=== PATIENT | male | born 1985 | race Caucasian/White ===

== ENCOUNTER 2017-03-03 01:00 | Emergency (ER) | payer OTHER ==
[~2017-03-03] VITALS: Ht 174 cm; Wt 89.0 kg
[~2017-03-03 01:00] MED LIST: METH10TA2 PO; VITACAP26 PO
[2017-03-03 01:08] VITALS: TEMP 36.7; Ht 174 cm; Wt 89.0 kg
[2017-03-03] MEDS ORDERED: SODIUM CHLORIDE 0.9% 1000ML 1,000 ML IV STA (01:30)
[2017-03-03] MEDS ORDERED: ONDA4TAB46 PO (01:36)
[2017-03-03] MEDS ORDERED: PRLSR20 PO (01:36)
[2017-03-03] MEDS ORDERED: METH5SOL PO (01:38)
[2017-03-03] MEDS ORDERED: OPTIRAY 320 IV PRN (01:45)
[2017-03-03 01:56] LABS: ISTAT CREATININE 0.8 mg/dl (0.6-1.3); ISTAT IONIZED CALCIUM 1.15 mmol/l (1.12-1.32)
[2017-03-03 02:00] LABS: BASO % 0.2 %; BASO ABS # 0.02 K/uL (0-0.2); COMPLETE YES; EOS % 5.1 %; IG% 0.3 %; LYMPH ABS # 3.55 K/uL (1.2-3.4); MEAN CELL VOLUME 93.3 fL (80-100); MEAN CORPUSCULAR HEMOGLOBIN 32.2 pg (25-34); MEAN CORPUSCULAR HGB CONC 34.5 g/dl (32-36); MEAN PLATELET VOLUME 10.2 fL (7.4-10.4); MONO % 8.1 %; NEUT % 53.3 %; PLATELET COUNT 145 K/uL (130-400); WHITE BLOOD COUNT 10.76 K/uL (4.8-10.8)
[2017-03-03 02:16] LABS: PARTIAL THROMBOPLASTIN RATIO 1.1; PROTHROMBIN TIME (PATIENT) 10.3 SECONDS (9.0-12.0)
[2017-03-03 02:21] LABS: BUN/CREATININE RATIO 11.5 (10-20); CALCIUM 8.5 mg/dl (8.5-10.1); CREATININE 0.87 mg/dl (0.60-1.40); POTASSIUM 3.9 mmol/L (3.5-5.1)
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
[2017-03-03] MEDS ORDERED: IBUP-1450 PO (02:46)
[2017-03-03] MEDS ORDERED: KETOROLAC TROMETHAMINE 30 MG/ML VIAL ONE (03:03)
[2017-03-03] MEDS ORDERED: KETOROLAC TROMETHAMINE 30 MG/ML VIAL IV STA (03:05)
--- NOTE | 2017-03-03 03:11 | EMERGENCY ROOM VISIT NOTE ---
ED Visit Note First contact with patient: 01:05 I was asked to see this patient because he was unhappy that he did not receive any pain medication while here in the emergency department. The patient is a recovering drug addict with hepatitis C. He is currently on methadone. He requested that I prescribe him a nonnarcotic pain medication. I explained to him that he was prescribed Motrin to use for his pain. He explained that Motrin and Tylenol do not work for him. He then proceeded to search nonnarcotic pain medications on his phone. He recommended gabapentin or Neurontin for his pain. I explained that these medications are not typically effective for acute traumatic pain but for more long-term chronic pain. The patient was given 30 mg of IV Toradol for his acute pain. We talked about his alcohol use yesterday and his history of hepatitis C. I suggested that the patient take Motrin every 6 hours of stomach. He can follow-up with his PCP if the rib fracture pain persists.
[2017-03-03 03:15] VITALS: BP 124/80; PULSE 90; O2SAT 98
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
== END 2017-03-03 03:20 | disposition home or self-care (01) ==
LOC: C.EDB 01:02 → C.EDA 03:20
DX: S22.41XA Multiple fractures of ribs, right side, initial encounter for closed fracture (principal); W51.XXXA Accidental striking against or bumped into by another person, initial encounter; Y93.83 Activity, rough housing and horseplay; Y99.8 Other external cause status; B19.20 Unspecified viral hepatitis C without hepatic coma; F17.200 Nicotine dependence, unspecified, uncomplicated; Z82.49 Family history of ischemic heart disease and other diseases of the circulatory system

== ENCOUNTER 2022-03-13 00:20 | Inpatient (IN) ==
[2022-03-13] MEDS ORDERED: SODIUM CHLORIDE 0.9% 1000ML 1,000 ML IV STA (00:28)
[2022-03-13] MEDS ORDERED: ONDANSETRON INJ 2 MG/ML 2 ML VIAL IV STA (00:28)
[2022-03-13] MEDS ORDERED: MoRPHine SULFATE 4 MG/ML 1 ML CARP\\VIAL IV STA (00:28)
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
[2022-03-13 01:02] LABS: Hematocrit (blood only) 42.1 % (42-52); Hemoglobin 14.1 g/dL (14.0-18.0); Mean Corpuscular Hemoglobin 31.1 pg (25-34); Mean Corpuscular Hgb Conc 33.5 g/dL (32-36); Mean Corpuscular Volume 92.9 fL (80-100); Mean Platelet Volume 9.9 fL (7.4-10.4); Platelet Count 218 K/uL (130-400); RDW Coefficient of Variation 12.8 % (11.5-14.5); RDW Standard Deviation 43.8 fL (36.4-46.3); Red Blood Count 4.53 M/uL (4.7-6.1); White Blood Count 9.88 K/uL (4.8-10.8)
[2022-03-13 01:10] LABS: Appearance Urine Clear (Clear); Bilirubin Urine Negative (Negative); Blood Urine Negative (Negative); Color Urine Yellow; Glucose Urine UA Negative (Negative); Ketones Urine Negative (Negative); Leukocyte Esterase Urine Negative (Negative); Nitrite Urine Negative (Negative); Protein Urine Negative (Negative); Specific Gravity Urine 1.007 (1.000-1.030); Urobilinogen Urine Negative (Negative); pH Urine 5.5 (4.5-7.5)
[2022-03-13 01:18] LABS: Est GFR (African American) 133.7 ml/min
[2022-03-13 01:19] LABS: BUN Creatinine Ratio 20.7 (10-20); Calcium 9.3 mg/dl (8.5-10.1); Creatinine Clr Calc Pharmacy 122.8 ml/min; Est GFR (Non-African American) 115.4 ml/min
[2022-03-13 01:33] LABS: Albumin Globulin Ratio 1.6 (0.9-2); Albumin Level 4.6 gm/dl (3.4-5.0); Bilirubin,Total 0.8 mg/dl (0.2-1.0); Globulin 2.8 gm/dl (2.5-4.0); Total Protein 7.4 gm/dl (6.0-8.3)
[2022-03-13] MEDS ORDERED: OPTIRAY 320 100ml IV ONE (01:57)
[2022-03-13 02:03] LABS: Basophils # (auto) 0.01 K/uL (0-0.2); Basophils % (auto) 0.1 %; Eosinophils # (auto) 0.91 K/uL (0-0.5); Eosinophils % (auto) 9.2 %; Immature Granulocytes # (auto) 0.02 K/uL (0.00-0.02); Immature Granulocytes % (auto) 0.2 %; Lymphocytes % (auto) 29.4 %; Monocytes # (auto) 0.63 K/uL (0.11-0.59); Monocytes % (auto) 6.4 %; Neutrophils # (auto) 5.41 K/uL (1.4-6.5); Neutrophils % (auto) 54.7 %
[2022-03-13] MEDS ORDERED: SODIUM CHLORIDE 0.9% 1000ML 1,000 ML IV ONE (02:52)
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
[2022-03-13] MEDS ORDERED: KETOROLAC TROMETHAMINE 15 MG/ML VIAL IV ONE (04:06)
[2022-03-13] MEDS ORDERED: LORazepam 2 MG/1 ML VIAL IV PRN ×4 (04:08→05:13)
[2022-03-13] MEDS ORDERED: ATIVAN IV ALCOHOL WITHDRAWL IV PRN (04:08)
[2022-03-13] MEDS ORDERED: THIAMINE HCL 100 MG in SYRINGE 9 ML IV STA (04:19)
[2022-03-13] MEDS ORDERED: PROMETHAZINE HCL 12.5 MG in SODIUM CHLORIDE 0.9% 50 ML IV PRN (05:13)
[2022-03-13] MEDS ORDERED: CYCLOBENZAPRINE HCL 10 MG TAB PO PRN (05:13)
[2022-03-13] MEDS ORDERED: ACETAMINOPHEN 325 MG TAB PO PRN (05:13)
[2022-03-13] MEDS ORDERED: LACTATED RINGER'S 1,000 ML IV ONE (05:13)
[2022-03-13] MEDS ORDERED: KETOROLAC TROMETHAMINE 15 MG/ML VIAL IV PRN (05:13)
[2022-03-13] MEDS: NICOTINE 21 MG/24 HR TDSY TD SCH (05:33)
[2022-03-13] MEDS: PANTOprazole 40 MG TAB PO SCH (06:15)
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
[2022-03-13] MEDS: buPROPion XL 300 MG TABCR PO SCH (09:56)
[2022-03-13] MEDS: OXYBUTYNIN CHLORIDE 5 MG TAB PO SCH (09:56)
[2022-03-13] MEDS: ENOXAPARIN INJ 40 MG/0.4 ML SYR SQ SCH (09:56)
[2022-03-13] MEDS: MULTIVITAMIN TAB PO SCH (09:56)
[2022-03-13] MEDS: FOLIC ACID 1 MG TAB PO SCH (09:56)
[2022-03-13] MEDS: LACTATED RINGER'S 1,000 ML IV SCH ×3 (10:45→19:53)
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
[2022-03-13] MEDS ORDERED: METHADONE XX SCH (12:45)
[2022-03-13] MEDS: METHADONE ORAL SOLN 2 MG/ML PO SCH (14:07)
[2022-03-13 22:16] LABS: Amphetamines+Metham, Urine Neg (Neg); Barbiturates, Urine Neg (Neg); Benzodiazepine, Urine Neg (Neg); Cocaine, Urine Neg (Neg); MDMA (Ecstacy), Urine Pos (Neg); Methadone, Urine Pos (Neg); Opiate, Urine Neg (Neg); Phencyclidine, Urine Neg (Neg)
[2022-03-14] MEDS: LACTATED RINGER'S 1,000 ML IV SCH ×3 (00:19→08:24)
[2022-03-14] MEDS: PANTOprazole 40 MG TAB PO SCH (06:05)
[2022-03-14] MEDS: OXYBUTYNIN CHLORIDE 5 MG TAB PO SCH (08:24)
[2022-03-14] MEDS: NICOTINE 21 MG/24 HR TDSY TD SCH (08:24)
[2022-03-14] MEDS: MULTIVITAMIN TAB PO SCH (08:24)
[2022-03-14] MEDS: FOLIC ACID 1 MG TAB PO SCH (08:24)
[2022-03-14] MEDS: buPROPion XL 300 MG TABCR PO SCH (08:25)
[2022-03-14] MEDS: METHADONE ORAL SOLN 2 MG/ML PO SCH (08:35)
[2022-03-14] MEDS: ENOXAPARIN INJ 40 MG/0.4 ML SYR SQ SCH (08:46)
[2022-03-14] MEDS ORDERED: THIAMINE HCL 100 MG TAB PO SCH (09:00)
[2022-03-14 09:43] LABS: Basophils # (auto) 0.01 K/uL (0-0.2); Basophils % (auto) 0.1 %; Eosinophils # (auto) 0.37 K/uL (0-0.5); Eosinophils % (auto) 4.6 %; Hematocrit (blood only) 41.6 % (42-52); Hemoglobin 13.8 g/dL (14.0-18.0); Immature Granulocytes # (auto) 0.01 K/uL (0.00-0.02); Immature Granulocytes % (auto) 0.1 %; Lymphocytes # (auto) 1.47 K/uL (1.2-3.4); Lymphocytes % (auto) 18.3 %; Mean Corpuscular Hemoglobin 30.9 pg (25-34); Mean Corpuscular Hgb Conc 33.2 g/dL (32-36); Mean Corpuscular Volume 93.1 fL (80-100); Mean Platelet Volume 10.4 fL (7.4-10.4); Monocytes # (auto) 0.56 K/uL (0.11-0.59); Neutrophils % (auto) 69.9 %; Platelet Count 174 K/uL (130-400); RDW Coefficient of Variation 12.8 % (11.5-14.5); RDW Standard Deviation 43.7 fL (36.4-46.3); Red Blood Count 4.47 M/uL (4.7-6.1); White Blood Count 8.02 K/uL (4.8-10.8)
--- NOTE | 2022-03-14 09:55 | Gastroenterology Progress Note ---
Date of Service March 14, 2022 Assessment & Plan (1) Pancreatitis: (2) Upper abdominal pain: Plan: 36 old male with history of IV drug use, clean for 2 months, history of hep C which was treated several years ago, achieved SVR, recent hep C testing was negative as an outpatient, history of binge drinking, recently drink 3 days ago, developed nausea vomiting abdominal pain. Presented today, lipase of greater than 600, but otherwise labs unremarkable and CT suggested the pancreas appeared normal. No apparent biliary stones, no Vito Dil or elevated LFTs to suggest biliary obstruction. Likely seems to be c/w mild pancreatitis related to ETOH use by history, this already appears clinically improved as he is tolerating a clear liquid tray and asking for more food presently. Pain is largely controlled. - LR fluid hydration; aim for 2 pt drop in HGB - Antiemetics as needed Diet as tolerated; low fat Can encourage ambulation as tolerated - Would encourage strict EtOH avoidance moving forward Thank you for allowing us to participate in the care of this patient. Please call with any acute changes, questions or concerns. Please see addendum below with additional recommendation from my supervising physician. Admission and Anticipated Discharge Date Admission Date: March 13, 2022 Supervising Physician Co-Signing Physician Notes Attg add: I interviewed and examined pt, reviewed chart and labs. Decrease fluids, diet as tolerated. No further recommendations. Can consider outpt EUS. Should undergo re-screen for HCV as outpt. Subjective Pt was seen and evaluated, chart reviewed. Feeling about 30% improved from yesterday Hungry, wants regular diet Pain is less severe Review of Systems Review of Systems: All systems reviewed & are unremarkable except as noted in HPI & below Physical Exam Constitutional: WD/WN, vitals as above Neck: trachea midline Respiratory: normal respiratory effort, lungs clear to auscultation Cardiovascular: Rate/Rhythm: regular rate and regular rhythm Gastrointestinal (Abdomen): normal bowel sounds, soft, nontender, no hepatosplenomegaly Skin: no rashes, warm and dry Results & Data ([facility]) Vital Signs (Past 12 Hours) Vital Signs Temp Pulse Resp BP Pulse Ox 03/14/22 07:14 36.8 C 54 L 16 119/78 92 03/13/22 22:28 36.4 C L 45 L 14 125/76 94 Laboratory Results 03/14/22 03/14/22 03/13/22 Range/Units 09:27 09:27 19:45 WBC 8.02 (4.8-10.8) K/uL RBC 4.47 L (4.7-6.1) M/uL Hgb 13.8 L (14.0-18.0) g/dL Hct 41.6 L (42-52) % MCV 93.1 (80-100) fL MCH 30.9 (25-34) pg MCHC 33.2 (32-36) g/dL RDW Std Deviation 43.7 (36.4-46.3) fL RDW Coeff of Jocelyne 12.8 (11.5-14.5) % Plt Count 174 (130-400) K/uL MPV 10.4 (7.4-10.4) fL Immature Gran % (Auto) 0.1 % Neut % (Auto) 69.9 % Lymph % (Auto) 18.3 % [place] % (Auto) 7.0 % Eos % (Auto) 4.6 % Baso % (Auto) 0.1 % Neut # (Auto) 5.60 (1.4-6.5) K/uL Lymph # (Auto) 1.47 (1.2-3.4) K/uL [place] # (Auto) 0.56 (0.11-0.59) K/uL Eos # (Auto) 0.37 (0-0.5) K/uL Baso # (Auto) 0.01 (0-0.2) K/uL Immature Gran # (Auto) 0.01 (0.00-0.02) K/uL Sodium Pending Potassium Pending Chloride Pending Carbon Dioxide Pending Anion Gap Pending BUN Pending Creatinine Pending Est Cr Clr Drug Dosing Pending Est GFR ( Amer) Pending Est GFR (Non-Af Amer) Pending BUN/Creatinine Ratio Pending Glucose Pending Calcium Pending Phosphorus Pending Magnesium Pending Total Bilirubin Pending AST Pending ALT Pending Alkaline Phosphatase Pending Total Protein Pending Albumin Pending Globulin Pending Albumin/Globulin Ratio Pending Nasal Screen MRSA (PCR) (Negative) Urine Opiates Screen (Neg) Ur Methadone, Qual (Neg) U Methadone Metabolites Pending Ur Methadone Confirm Pending Urine Barbiturates (Neg) Ur Phencyclidine (PCP) (Neg) U Amphetamin/Meth Scrn (Neg) Urine MDEA Pending MDMA (Ecstasy) Screen (Neg) MDMA Pending Urine MDMA Pending U Benzodiazepines Scrn (Neg) Ur Cocaine Metabolite (Neg) U Marijuana (THC) Screen (Neg) U Marijuana THC Carboxy Pending Drug Screen Comment Pending 03/13/22 03/13/22 Range/Units 19:45 10:44 WBC (4.8-10.8) K/uL RBC (4.7-6.1) M/uL Hgb (14.0-18.0) g/dL Hct (42-52) % MCV (80-100) fL MCH (25-34) pg MCHC (32-36) g/dL RDW Std Deviation (36.4-46.3) fL RDW Coeff of Jocelyne (11.5-14.5) % Plt Count (130-400) K/uL MPV (7.4-10.4) fL Immature Gran % (Auto) % Neut % (Auto) % Lymph % (Auto) % [place] % (Auto) % Eos % (Auto) % Baso % (Auto) % Neut # (Auto) (1.4-6.5) K/uL Lymph # (Auto) (1.2-3.4) K/uL [place] # (Auto) (0.11-0.59) K/uL Eos # (Auto) (0-0.5) K/uL Baso # (Auto) (0-0.2) K/uL Immature Gran # (Auto) (0.00-0.02) K/uL Sodium Potassium Chloride Carbon Dioxide Anion Gap BUN Creatinine Est Cr Clr Drug Dosing Est GFR ( Amer) Est GFR (Non-Af Amer) BUN/Creatinine Ratio Glucose Calcium Phosphorus Magnesium Total Bilirubin AST ALT Alkaline Phosphatase Total Protein Albumin Globulin Albumin/Globulin Ratio Nasal Screen MRSA (PCR) Negative (Negative) Urine Opiates Screen Neg (Neg) Ur Methadone, Qual Pos H (Neg) U Methadone Metabolites Ur Methadone Confirm Urine Barbiturates Neg (Neg) Ur Phencyclidine (PCP) Neg (Neg) U Amphetamin/Meth Scrn Neg (Neg) Urine MDEA MDMA (Ecstasy) Screen Pos H (Neg) MDMA Urine MDMA U Benzodiazepines Scrn Neg (Neg) Ur Cocaine Metabolite Neg (Neg) U Marijuana (THC) Screen Pos H (Neg) U Marijuana THC Carboxy Drug Screen Comment (1) Pancreatitis Acute pancreatitis complication: no infection or necrosis Chronicity: acute Pancreatitis type: unspecified pancreatitis type Qualified Code(s): K85.90 - Acute pancreatitis without necrosis or infection, unspecified
[2022-03-14 10:00] LABS: Albumin Globulin Ratio 1.6 (0.9-2); Albumin Level 3.9 gm/dl (3.4-5.0); BUN Creatinine Ratio 11.1 (10-20); Bilirubin,Total 1.1 mg/dl (0.2-1.0); Calcium 9.2 mg/dl (8.5-10.1); Creatinine Clr Calc Pharmacy 139.9 ml/min; Est GFR (African American) 141.1 ml/min; Est GFR (Non-African American) 121.7 ml/min; Globulin 2.4 gm/dl (2.5-4.0); Magnesium 1.7 mg/dl (1.7-2.4); Potassium 3.8 mmol/L (3.5-5.1); Total Protein 6.3 gm/dl (6.0-8.3)
--- NOTE | 2022-03-14 11:21 | Hospitalist Progress Note ---
Date of Service March 14, 2022 Assessment & Plan (1) Pancreatitis: Plan: Alcoholic pancreatitis AWSS, DT precautions Much improved after IV fluids and bowel rest Now tolerating low-fat diet, abdominal pain much improved GI also consulted encourage strict EtOH avoidance Can consider outpatient EUS Chronic pain on methadone -Continue methadone dose 66 mg daily, this was confirmed with his clinic COPD, ongoing tobacco abuse, lung status stable Nicotine patch hx HCV, has been evaluated by Corey Jane Per GI, should undergo re-screening for HCV as outpatient DVT prophylaxis per Lovenox subq Full code Admission and Anticipated Discharge Date Admission Date: March 13, 2022 Subjective Patient seen in follow-up of alcoholic pancreatitis Currently feeling much better, ambulating in hallway, tolerating low-fat diet He is inquiring about going home Denies fever, chills, chest pain, shortness of breath. Abdominal pain much improved. No nausea or vomiting. Review of Systems Review of Systems: All systems reviewed & are unremarkable except as noted in Subjective Physical Exam Physical Exam: GENERAL: WD/WN you ng M in no respira tory distress SKI N: Normal color, w arm HEENT: NC/AT, EOMI, PERRL NECK : Supple, no tend erness CHEST : CT AB HEART : RRR, n o obvious murmurs ABDOMEN: soft, + BS, mild distentio n, + mild epigastr ic tenderness EXT REMITIES : No LE s welling, moves ext remities NEUROLOG IC : Awake and praveen rt, answering ques tions appropriatel y, no facial asymm etry, speech fluen t, moves extremity SKIN: Normal col or, warm Results & Data Results & Data ([facility]) Vital Signs (Past 12 Hours) Vital Signs Temp Pulse Resp BP Pulse Ox 03/14/22 11:10 36.5 C 43 L 16 146/89 H 95 03/14/22 07:14 36.8 C 54 L 16 119/78 92 Laboratory Results 03/14/22 03/14/22 03/13/22 Range/Units 09:27 09:27 19:45 WBC 8.02 (4.8-10.8) K/uL RBC 4.47 L (4.7-6.1) M/uL Hgb 13.8 L (14.0-18.0) g/dL Hct 41.6 L (42-52) % MCV 93.1 (80-100) fL MCH 30.9 (25-34) pg MCHC 33.2 (32-36) g/dL RDW Std Deviation 43.7 (36.4-46.3) fL RDW Coeff of Jocelyne 12.8 (11.5-14.5) % Plt Count 174 (130-400) K/uL MPV 10.4 (7.4-10.4) fL Immature Gran % (Auto) 0.1 % Neut % (Auto) 69.9 % Lymph % (Auto) 18.3 % [place] % (Auto) 7.0 % Eos % (Auto) 4.6 % Baso % (Auto) 0.1 % Neut # (Auto) 5.60 (1.4-6.5) K/uL Lymph # (Auto) 1.47 (1.2-3.4) K/uL [place] # (Auto) 0.56 (0.11-0.59) K/uL Eos # (Auto) 0.37 (0-0.5) K/uL Baso # (Auto) 0.01 (0-0.2) K/uL Immature Gran # (Auto) 0.01 (0.00-0.02) K/uL Sodium 139 (136-145) mmol/L Potassium 3.8 (3.5-5.1) mmol/L Chloride 105 (98-107) mmol/L Carbon Dioxide 29 (21-32) mmol/L Anion Gap 5 (3-11) BUN 8 (6-23) mg/dl Creatinine 0.72 (0.6-1.4) mg/dl Est Cr Clr Drug Dosing 139.9 ml/min Est GFR ( Amer) 141.1 ml/min Est GFR (Non-Af Amer) 121.7 ml/min BUN/Creatinine Ratio 11.1 (10-20) Glucose 107 H (70-99(Fasting)) mg/dl Calcium 9.2 (8.5-10.1) mg/dl Phosphorus 2.0 L (2.5-4.9) mg/dl Magnesium 1.7 (1.7-2.4) mg/dl Total Bilirubin 1.1 H (0.2-1.0) mg/dl AST 19 (13-39) U/L ALT 13 (7-52) U/L Alkaline Phosphatase 58 (34-104) U/L Total Protein 6.3 (6.0-8.3) gm/dl Albumin 3.9 (3.4-5.0) gm/dl Globulin 2.4 L (2.5-4.0) gm/dl Albumin/Globulin Ratio 1.6 (0.9-2) Nasal Screen MRSA (PCR) (Negative) Urine Opiates Screen (Neg) Ur Methadone, Qual (Neg) U Methadone Metabolites Pending Ur Methadone Confirm Pending Urine Barbiturates (Neg) Ur Phencyclidine (PCP) (Neg) U Amphetamin/Meth Scrn (Neg) Urine MDEA Pending MDMA (Ecstasy) Screen (Neg) MDMA Pending Urine MDMA Pending U Benzodiazepines Scrn (Neg) Ur Cocaine Metabolite (Neg) U Marijuana (THC) Screen (Neg) U Marijuana THC Carboxy Pending Drug Screen Comment Pending 03/13/22 03/13/22 Range/Units 19:45 10:44 WBC (4.8-10.8) K/uL RBC (4.7-6.1) M/uL Hgb (14.0-18.0) g/dL Hct (42-52) % MCV (80-100) fL MCH (25-34) pg MCHC (32-36) g/dL RDW Std Deviation (36.4-46.3) fL RDW Coeff of Jocelyne (11.5-14.5) % Plt Count (130-400) K/uL MPV (7.4-10.4) fL Immature Gran % (Auto) % Neut % (Auto) % Lymph % (Auto) % [place] % (Auto) % Eos % (Auto) % Baso % (Auto) % Neut # (Auto) (1.4-6.5) K/uL Lymph # (Auto) (1.2-3.4) K/uL [place] # (Auto) (0.11-0.59) K/uL Eos # (Auto) (0-0.5) K/uL Baso # (Auto) (0-0.2) K/uL Immature Gran # (Auto) (0.00-0.02) K/uL Sodium (136-145) mmol/L Potassium (3.5-5.1) mmol/L Chloride (98-107) mmol/L Carbon Dioxide (21-32) mmol/L Anion Gap (3-11) BUN (6-23) mg/dl Creatinine (0.6-1.4) mg/dl Est Cr Clr Drug Dosing ml/min Est GFR ( Amer) ml/min Est GFR (Non-Af Amer) ml/min BUN/Creatinine Ratio (10-20) Glucose (70-99(Fasting)) mg/dl Calcium (8.5-10.1) mg/dl Phosphorus (2.5-4.9) mg/dl Magnesium (1.7-2.4) mg/dl Total Bilirubin (0.2-1.0) mg/dl AST (13-39) U/L ALT (7-52) U/L Alkaline Phosphatase (34-104) U/L Total Protein (6.0-8.3) gm/dl Albumin (3.4-5.0) gm/dl Globulin (2.5-4.0) gm/dl Albumin/Globulin Ratio (0.9-2) Nasal Screen MRSA (PCR) Negative (Negative) Urine Opiates Screen Neg (Neg) Ur Methadone, Qual Pos H (Neg) U Methadone Metabolites Ur Methadone Confirm Urine Barbiturates Neg (Neg) Ur Phencyclidine (PCP) Neg (Neg) U Amphetamin/Meth Scrn Neg (Neg) Urine MDEA MDMA (Ecstasy) Screen Pos H (Neg) MDMA Urine MDMA U Benzodiazepines Scrn Neg (Neg) Ur Cocaine Metabolite Neg (Neg) U Marijuana (THC) Screen Pos H (Neg) U Marijuana THC Carboxy Drug Screen Comment Medications Administered Current Inpatient Medications Acetaminophen (Acetaminophen 325 Mg Tab) 650 mg PO Q6H PRN PRN Reason: Fever/pain Stop: 04/12/22 05:12 Bupropion HCl (Bupropion Xl 300 Mg Tabcr) 300 mg PO QAM [facility] Stop: 04/12/22 08:59 Last Admin: 03/14/22 08:25 Dose: 300 mg Documented by: Cyclobenzaprine HCl (Cyclobenzaprine Hcl 10 Mg Tab) 10 mg PO TID PRN PRN Reason: Muscle Spasm Stop: 04/12/22 05:12 Enoxaparin Sodium (Enoxaparin Inj 40 Mg/0.4 Ml Syr) [facility] Stop: 04/12/22 08:59 Last Admin: 03/14/22 08:46 Dose: 40 mg Documented by: Folic Acid (Folic Acid 1 Mg Tab) 1 mg PO QAM [facility] Stop: 04/12/22 08:59 Last Admin: 03/14/22 08:24 Dose: 1 mg Documented by: Promethazine HCl 12.5 mg/ (Sodium Chloride) 50.5 mls @ 202 mls/hr IV Q6H PRN PRN Reason: Nausea And Vomiting Stop: 04/12/22 05:12 Ketorolac Tromethamine (Ketorolac Tromethamine 15 Mg/Ml Vial) 15 mg IV Q6H PRN PRN Reason: Pain Stop: 03/18/22 05:12 Last Admin: 03/13/22 11:33 Dose: 15 mg Documented by: Lorazepam (Lorazepam 2 Mg/1 Ml Vial) 1 mg IV UD PRN; Protocol PRN Reason: EtOH Withdrawl AWSS Score 6,7 Stop: 04/12/22 04:07 Last Admin: 03/13/22 21:51 Dose: 1 mg Documented by: Lorazepam (Lorazepam 2 Mg/1 Ml Vial) 2 mg IV UD PRN; Protocol PRN Reason: EtOH Withdrawl AWSS Score 8,9 Stop: 04/12/22 04:07 Lorazepam (Lorazepam 2 Mg/1 Ml Vial) 3 mg IV ONCE PRN; Protocol PRN Reason: EtOH Withdrawl AWSS Score >=10 Stop: 04/12/22 04:07 Lorazepam (Lorazepam 2 Mg/1 Ml Vial) 0.5 mg IV Q4H PRN; Protocol PRN Reason: Anxiety Stop: 04/12/22 05:12 Methadone HCl (Methadone Oral Soln 2 Mg/Ml) 66 mg PO QAM [facility] Stop: 03/27/22 12:59 Last Admin: 03/14/22 08:35 Dose: 66 mg Documented by: Miscellaneous (Remove Nicoderm Patch) 1 ea N/A DAILY@0859 [facility] Stop: 04/13/22 08:58 Last Admin: 03/14/22 08:24 Dose: 1 ea Documented by: Multivitamins (Multivitamin Tab) 1 tab PO QAM [facility] Stop: 04/12/22 08:59 Last Admin: 03/14/22 08:24 Dose: 1 tab Documented by: Nicotine (Nicotine 21 Mg/24 Hr Tdsy) 21 mg TD QAM [facility] Stop: 04/12/22 05:59 Last Admin: 03/14/22 08:24 Dose: 21 mg Documented by: Methadone Patient's (Own Controlled Med 1) 1 ea XX UD [facility] Stop: 03/27/22 12:44 Oxybutynin Chloride (Oxybutynin Chloride 5 Mg Tab) 2.5 mg PO [facility] Stop: 04/12/22 08:59 Last Admin: 03/14/22 08:24 Dose: 2.5 mg Documented by: [facility]oprazole S[facility] ([facility] 40 Mg Tab) [facility]: 04/12/22 06:29 Last Admin: 03/14/22 06:05 Dose: 40 mg Documented by: Thiamine HCl (Thiamine Hcl 100 Mg Tab) 100 mg PO [facility] Stop: 04/13/22 08:59 Last Admin: 03/14/22 08:24 Dose: 100 mg Documented by: (1) Pancreatitis Acute pancreatitis complication: no infection or necrosis Chronicity: acute Pancreatitis type: unspecified pancreatitis type Qualified Code(s): K85.90 - Acute pancreatitis without necrosis or infection, unspecified
[2022-03-14] MEDS ORDERED: SIMETHICONE 40 MG/0.6 ML 30ML PO ONE (12:57)
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
== END 2022-03-14 14:38 | disposition home or self-care (01) | DRG 439 ==
LOC: ED 00:20 → 3N 03:45